=== PATIENT | female | born 1955 | race Two or more races ===

== ENCOUNTER → 2021-08-16 | Emergency (ER) | payer OTHER ==
[~2021-08-16] VITALS: Ht 152.4 cm; Wt 57.6 kg
[~2021-08-16] MED LIST: TRILEPTAL300 MG PO
== END | disposition left against medical advice (07) ==
LOC: ER 23:12
DX: Z53.21 Procedure and treatment not carried out due to patient leaving prior to being seen by health care provider (principal)

== ENCOUNTER 2023-01-21 13:29 | Emergency (ER) | payer OTHER ==
[~2023-01-21] VITALS: Ht 160 cm; Wt 56.7 kg
[~2023-01-21 13:29] MED LIST changes: -DICY20TA PO; -PEPCID AC20 MG PO
[2023-01-21] MEDS ORDERED: DICY20TA PO (19:45)
[2023-01-21] MEDS ORDERED: PEPCID AC20 MG PO (19:45)
== END 2023-01-21 19:51 | disposition home or self-care (01) ==
LOC: ER 13:29
DX: K52.9 Noninfective gastroenteritis and colitis, unspecified (principal); N18.6 End stage renal disease; Z88.0 Allergy status to penicillin; I10 Essential (primary) hypertension; Z20.822 Contact with and (suspected) exposure to COVID-19

== ENCOUNTER → 2023-01-21 | Outpatient (CLI) | payer OTHER ==
[~2023-01-21] MED LIST changes: +DICY20TA PO; +PEPCID AC20 MG PO
== END | disposition home or self-care (01) ==
LOC: MAMO-SONO 11:09
PROVIDERS: ATTEND Obstetrics & Gynecology
DX: N63.10 Unspecified lump in the right breast, unspecified quadrant (principal); N63.20 Unspecified lump in the left breast, unspecified quadrant; Z12.31 Encounter for screening mammogram for malignant neoplasm of breast

== ENCOUNTER → 2024-04-05 11:46 | Outpatient (CLI) | payer OTHER ==
[~2024-04-05 11:46] MED LIST changes: +DICY20TA PO; +PEPCID AC20 MG PO
== END | disposition home or self-care (01) ==
LOC: MAMO-SONO 11:46
DX: N64.4 Mastodynia (principal); Z12.31 Encounter for screening mammogram for malignant neoplasm of breast

== ENCOUNTER 2024-04-21 09:50 | Emergency (ER) | payer OTHER ==
[~2024-04-21] VITALS: Ht 160 cm; Wt 56.7 kg
[2024-04-21] MEDS ORDERED: DEXAMETHASONE SODIUM PHOSPHATE 4 MG/ML VIAL IM STA (10:44)
[2024-04-21] MEDS ORDERED: KETOROLAC TROMETHAMINE 15 MG VIAL IM STA (10:44)
[2024-04-21] MEDS ORDERED: TRAM1TAB98 PO (11:51)
[2024-04-21] MEDS ORDERED: CLOTRIMAZOLE-BE15 G1 TOP (12:00)
[2024-04-21 12:09] VITALS: BP 162/80; O2SAT 100
== END 2024-04-21 12:10 | disposition home or self-care (01) ==
LOC: ER 09:52
DX: M79.671 Pain in right foot (principal); I10 Essential (primary) hypertension; E11.9 Type 2 diabetes mellitus without complications; Z88.0 Allergy status to penicillin
CPT/HCPCS: 73630; 96372; 99283; J1100; J1885

== ENCOUNTER 2024-05-02 13:28 | Outpatient (CLI) | payer OTHER ==
[~2024-05-02 13:28] MED LIST changes: +CLOTRIMAZOLE-BE15 G1 TOP; +TRAM1TAB98 PO
== END 2024-05-02 13:29 | disposition home or self-care (01) ==
LOC: NUCLEAR 13:28
DX: M81.0 Age-related osteoporosis without current pathological fracture (principal)